=== PATIENT | female | born 1955 | race Caucasian/White ===

== ENCOUNTER 2024-02-20 07:12 | Day surgery (SDC) | payer OTHER, MEDICARE ==
[2024-02-15 16:26] VITALS: BMI 23.7
[2024-02-20] MEDS ORDERED: PROPOFOL 200 ML ONE (07:37)
[2024-02-20] MEDS ORDERED: LIDOCAINE HCL/PF 2% SDV 5ML VIAL ONE (07:37)
[2024-02-20 08:57] VITALS: RESP 18; TEMP 97.2
[2024-02-20 09:23] VITALS: BP 130/82; PULSE 66
== END 2024-02-20 09:30 | disposition home or self-care (01) ==
LOC: FASU-ENDO 07:12
PROVIDERS: ATTEND Internal Medicine Gastroenterology
PROC: 0DJD8ZZ Inspection of Lower Intestinal Tract, Via Natural or Artificial Opening Endoscopic (ICD-10-PCS; principal; 2024-02-20 08:15)
DX: Z12.11 Encounter for screening for malignant neoplasm of colon (principal); Z83.719 Family history of colon polyps, unspecified